=== PATIENT | female | born 1940 | race American Indian/Alaskan Native ===

== ENCOUNTER 2017-04-16 09:25 | Outpatient (CLI) | payer MEDICARE ==
--- NOTE | 2017-04-16 12:05 | Cat Scan Report ---
CT NECK WITHOUT CONTRAST: HISTORY: Mass of submandibular gland. TECHNIQUE: Helical CT without IV contrast. Sagittal and coronal reformatted. Images. FINDINGS: Please note IV contrast could not be administered due to allergy. The parotid and submandibular glands are normal. The carotid sheaths are intact. There is no evidence of adenopathy within the neck. The thyroid gland is normal. The glottic structures are normal. The airway is patent. Strap musculature is unremarkable. Hyoid bone and thyroid cartilage are intact. Poor dentition is noted. There is moderate multilevel cervical spondylosis no evidence for fracture or bone lesion. The lung apices are clear. IMPRESSION: Unremarkable CT neck. No submandibular mass is appreciated.
--- NOTE | 2017-05-15 11:55 | Vascular Lab Report ---
CAROTID DUPLEX STUDY: RIGHT PSVEDV CCA PROX:[id number] CCA [id number] ICA PROX:9313 ICA MID:[id number] ICA DIST:[id number] ECA: 173 VERT: 49 11 LEFT PSVEDV CCA PROX:9621 CCA DIST:[id number] ICA PROX:08104 ICA MID:[id number] ICA DIST:8222 ECA: 109 VERT: 46 14 REASON FOR EXAM: Carotid artery stenosis. COMMENTS ON THE RIGHT: Doppler frequency analysis is consistent with 16 to 49 percent diameter reduction of the internal carotid artery. Calcified plaque is seen. The common carotid artery is patent. The external carotid artery is patent. The vertebral artery has antegrade flow. COMMENTS ON THE LEFT: Doppler frequency analysis is consistent with 50 to 79 percent diameter reduction by velocity criteria with minimal elevation of the internal carotid artery. Calcified plaque is seen. The common carotid artery is patent. The external carotid artery is patent. The vertebral artery has antegrade flow. IMPRESSION: 16 to 49% percent diameter reduction of the right internal carotid artery. 50 to 79 percent diameter reduction by minimal elevation of velocity without actual identifiable stenosis. Clinical correlation recommended. If warranted CTA may help further delineate the degree of stenosis.
== END 2017-04-16 09:26 | disposition home or self-care (01) ==
LOC: CT 09:25
PROVIDERS: ATTEND Physician Assistant
DX: I65.23 Occlusion and stenosis of bilateral carotid arteries (principal); K11.8 Other diseases of salivary glands; M47.892 Other spondylosis, cervical region
CPT/HCPCS: 70490; 93880